=== PATIENT | female | born 1990 | race Caucasian/White ===

== ENCOUNTER → 2017-05-21 | Outpatient (CLI) | payer BC | LOC: MC.RAD 07:30 | DX: N63 Unspecified lump in breast (principal); Z80.3 Family history of malignant neoplasm of breast; Z78.9 Other specified health status ==

== ENCOUNTER → 2017-07-06 | Outpatient (CLI) | payer BC | LOC: MC.RAD 14:15 → COL.RAD 14:56 | DX: E04.1 Nontoxic single thyroid nodule (principal); N63 Unspecified lump in breast; Z78.9 Other specified health status ==

== ENCOUNTER 2019-01-18 10:01 | Outpatient (CLI) | payer BC ==
[~2019-01-18] VITALS: Ht 170.2 cm; Wt 118.2 kg
[2019-01-18] VITALS (8 sets, daily range): BP systolic 159–181; BP diastolic 79–93; PULSE 63–74; TEMP 97.8
[2019-01-18] MEDS ORDERED: PRENATAL VITAMI1 TA3 PO (10:15)
[2019-01-18] MEDS ORDERED: SYNTHROID0.088 MG/T PO (10:15)
[2019-01-18] MEDS ORDERED: OSCAL 500 TAB500 MG PO (10:16)
[2019-01-18] MEDS ORDERED: PROTONIX20 MG PO (10:16)
--- NOTE | 2019-01-18 10:20 | NUR ---
G1 at 37.4 weeks gestation to LDR2 with c/o a headache and increased blood pressures taken by the school nurse. Patient changed into gown and assisted to left lateral position. EFMs explained and applied. FHR 130 bpm and reactive. No CTX per toco or patient reports. Blood pressure 181/93. Assessment completed. 1+ pitting edema noted to bilateral feet. Patient c/o headache but denies visual disturbances and has not taken medication for her headache. Repeat blood pressure 162/85. Plan of care reviewed.
--- NOTE | 2019-01-18 11:00 | NUR ---
Instructions for 24 hour urine reviewed with patient who states understanding.
[2019-01-18 11:18] LABS: BASO % 0.4 % (0.0-2.0); EOS # 0.1 (0.0-0.7); EOS % 0.7 % (0-4.0); GRAN # 6.2 (1.4-6.5); GRAN % 69.2 % (42.2-75.2); HEMATOCRIT 35.7 % (37.0-47.0); HEMOGLOBIN 12.1 g/dl (12.5-16.0); LYMPH # 1.7 (1.2-3.4); LYMPH % 19.2 % (20.0-51.0); MEAN CELL VOLUME 90 fl (80.0-100.0); MEAN CORPUSCULAR HEMOGLOBIN 30 pg (27.0-31.0); MEAN CORPUSCULAR HGB CONC 34 g/dl (33.0-37.0); MONO # 0.9 (0.1-0.6); MONO % 9.6 % (1.7-9.3); PLATELET COUNT 189 K/mm3 (130-400); RED BLOOD COUNT 3.98 M/mm3 (4.10-5.30); REDCELL DISTRIBUTION WIDTH-CV 13.1 % (11.5-14.5)
[2019-01-18 11:24] LABS: ALBUMIN 3.3 gm/dL (3.5-5.0); BILIRUBIN,TOTAL 0.2 mg/dL (0.0-1.0); CALCIUM 9.3 mg/dL (8.4-10.2); CREATININE, serum 0.53 (0.52-1.25); POTASSIUM 4.4 mmol/L (3.4-5.0); TOTAL PROTEIN 6.5 gm/dL (6.4-8.2)
--- NOTE | 2019-01-18 12:00 | NUR ---
Discharge instructions reviewed, including orders for modified bedrest and to return to the [facility] tomorrow to turn in 24 hour and to have blood pressure check. Patient states understanding.
[2019-01-21] MEDS ORDERED: PERCOCET 325 MG1 TA2 PO (09:37)
[2019-01-21] MEDS ORDERED: MOTRIN 800800 MG/TAB PO (09:37)
[2019-01-21] MEDS ORDERED: PROCARDIA XL 3030 MG PO (09:37)
== END 2019-01-18 12:10 | disposition home or self-care (01) ==
LOC: LDRO 10:01
PROVIDERS: Obstetrics & Gynecology
DX: O13.3 Gestational [pregnancy-induced] hypertension without significant proteinuria, third trimester (principal); O99.89 Other specified diseases and conditions complicating pregnancy, childbirth and the puerperium; R51 Headache; M79.89 Other specified soft tissue disorders; Z3A.37 37 weeks gestation of pregnancy

== ENCOUNTER → 2019-01-27 | Outpatient (CLI) | payer BC ==
[~2019-01-27] MED LIST: MOTRIN 800800 MG/TAB PO; OSCAL 500 TAB500 MG PO; PERCOCET 325 MG1 TA2 PO; PRENATAL VITAMI1 TA3 PO; PROCARDIA XL 3030 MG PO; PROTONIX20 MG PO; SYNTHROID0.088 MG/T PO
--- NOTE | 2019-01-27 16:21 | NUR ---
Pt, Leigh Keller, presents for outpatient consult with 8 day old baby girl, Jeison Keller, for a evaluation as Jeison has not been able to nurse effectively when she was in the hospital. Jeison was born at 37 weeks gestation by c/section because pt has pre-eclampsia. Her weight was 6#5.6oz (2880 gms). Discharge weight was 5#10oz. She was re-admitted for further weight loss, and at discharge on 01/25/19 she weighed 2650 gms. Jeison was seen yesterday by Dr. Alcala and her weight was reported to be 2670 gms. Today Jeison weighs 2690 gms (5#14.9oz). Feedings have been by bottle and are about 40-55ml each feed. Pt is able to collect 50-75% of her intake by bottle at this stage; she pumps every 2-4 hours. Pt and LC each work with latching Jeison. She opens her mouth widely and is eager but does not hold the nipple in her mouth. Latching was also attempted with a nipple shield but she still was not able to hold the latch and create a good suck effort. LC does suck evaluation with gloved finger and notes Jeison does not extend her tongue across the gum well and if she does extend it, the tongue slips back inside the gum. She does suckle but the pressure is mild. Jeison is fed 55ml formula via bottle by this LC while pt expressed breastmilk, collecting about 35ml. POC: continue pumping and bottle feeding, allowing Jeison time to grow, ideally to weight, and develop more and then re-evaluate . Pt advised on ways to encourage tongue extension. F/U: [facility]19 and with LC as Jeison gains weight and strength; anticipating in the next 1-2 weeks. Pt verbalizes understanding, questions invited and answered.
== END ==
LOC: OLC 14:02
DX: Z39.1 Encounter for care and examination of lactating mother (principal); Z71.89 Other specified counseling

== ENCOUNTER 2022-01-29 07:42 | Inpatient (IN) | payer BC ==
[~2022-01-29] VITALS: Ht 165.1 cm; Wt 128.2 kg
[2022-01-30] VITALS (24 sets, daily range): BP systolic 92–184; BP diastolic 47–92; PULSE 62–88; TEMP 97.6–98.3
--- NOTE | 2022-01-30 10:00 | NUR ---
046498.3 G2L1 arrives on unit for scheduled repeat section. Ambulatory to 209. Oriented to room and plan of care. Reports normal movement. Denies any LOF, VB, or regular contractions. Changes into clean gown. 1015EFM explained and placed. Tracing well. Consent forms explained and signed. Assessment completed. VS obtained. 1040IV to left hand. Routine labs obtained. LR bolus infusing. 1103FHR reactive. EFM removed. Patient updated on plan of care. Verbalizes understanding. 1120Dr. Alford at nurses desk. Reviews strip. Per Dr. Mondragon orders pt ambulatory to LDR3 for continues monitoring. 1132EFM reapplied and tracing well. Care of pt assumed by Aziza Taylor RN.
[2022-01-30 10:47] LABS: BASO % 0.4 % (0.0-2.0); EOS # 0.1 K/mm3 (0.0-0.7); EOS % 0.8 % (0.0-4.0); GRAN # 6.2 K/mm3 (1.4-6.5); LYMPH # 2.3 K/mm3 (1.2-3.4); LYMPH % 23.8 % (20.0-51.0); MEAN CELL VOLUME 87 fl (80.0-100.0); MEAN CORPUSCULAR HEMOGLOBIN 29 pg (27-31); MEAN CORPUSCULAR HGB CONC 33 g/dl (33.0-37.0); MEAN PLATELET VOLUME 10.5 fl (7.4-10.4); MONO # 1.1 K/mm3 (0.1-0.6); MONO % 10.9 % (1.7-9.3); PLATELET COUNT 208 K/mm3 (130-400); REDCELL DISTRIBUTION WIDTH-CV 13.9 % (11.5-14.5)
[2022-01-30] MEDS ORDERED: SYNTHROID0.125 MG/T PO (10:57)
[2022-01-30] MEDS ORDERED: PRENATAL TABLET PO (10:58)
[2022-01-30 15:52] LABS: ALBUMIN 2.8 gm/dL (3.5-5.0); BILIRUBIN,TOTAL 0.4 mg/dL (0.2-1.2); CALCIUM 8.6 mg/dL (8.4-10.2); CREATININE, serum 0.59 mg/dL (0.57-1.11); TOTAL PROTEIN 6.1 gm/dL (6.2-8.1)
[2022-01-31 00:30] VITALS: BP 150/79; PULSE 73; TEMP 98.1
[2022-01-31 04:00] VITALS: BP 133/72; PULSE 66; TEMP 97.5
[2022-01-31 07:10] VITALS: BP 133/79; PULSE 57; TEMP 97.8
[2022-01-31] MEDS ORDERED: IBU800 M1 PO (08:49)
[2022-01-31] MEDS ORDERED: PERCOCET 325 MG1 TA2 PO (08:49)
--- NOTE | 2022-01-31 09:06 | NUR ---
Initial visit; Parents thanked Wind Turbine Technician for offering congratulations and God's blessings for the of their daughter. Wind Turbine Technician thanked family for choosing [place].
[2022-01-31 12:00] VITALS: BP 127/69; PULSE 78; TEMP 98.1
[2022-01-31 16:30] VITALS: BP 142/72; PULSE 74; TEMP 97.6
--- NOTE | 2022-01-31 17:10 | NUR ---
1645- THIS RN CALLED DR. SNELL TO GET ORDERS TO GET ORDERS CHANGED FROM [place] TO [place] BECAUSE PT HAS HIT LIMIT ON TYLENOL AND IS NEEDING AN OPIOID TO CONTROL PAIN. NO ANSWER. 1654- THIS RN TRIED TO REACH HER AGAIN. 1700- CALLED DR. KERR FIELD [employer]IC. NO ANSWER. 171- CIRILO CALLED BACK AT THIS TIME AND GAVE TELEPOHONE ORDERS FOR ROXICODONE PRN Q4 HOURS AND TYLENOL PRN Q6 HOURS.
[2022-01-31 20:30] VITALS: BP 132/87; PULSE 79; TEMP 98
[2022-02-01 07:10] VITALS: BP 139/82; PULSE 84; TEMP 97.9
== END 2022-02-01 14:25 | disposition home or self-care (01) | DRG 788 ==
LOC: LDR 01-30 07:42 → OB 01-30 09:52 → LDR 01-30 17:06 → OB 02-01 14:25
PROVIDERS: ADMIT Student in an Organized Health Care Education/Training Program
PROC: 10D00Z1 Extraction of Products of Conception, Low, Open Approach (ICD-10-PCS; principal; 2022-01-30)
DX: O34.211 Maternal care for low transverse scar from previous cesarean delivery (principal); O99.214 Obesity complicating childbirth; E66.01 Morbid (severe) obesity due to excess calories; O99.62 Diseases of the digestive system complicating childbirth; K58.1 Irritable bowel syndrome with constipation; K21.9 Gastro-esophageal reflux disease without esophagitis; O99.284 Endocrine, nutritional and metabolic diseases complicating childbirth; E06.3 Autoimmune thyroiditis; O32.1XX0 Maternal care for breech presentation, not applicable or unspecified; O75.89 Other specified complications of labor and delivery; N83.8 Other noninflammatory disorders of ovary, fallopian tube and broad ligament; Z37.0 Single live birth; Z3A.39 39 weeks gestation of pregnancy
CPT/HCPCS: J0690; J1100; J1885; J2370; J2405; J2590; J7120

== ENCOUNTER 2022-12-23 05:21 | Day surgery (SDC) | payer BC ==
[~2022-12-23] VITALS: Ht 167.6 cm; Wt 118.6 kg
[~2022-12-23 05:21] MED LIST changes: +IBU800 M1 PO; +PRENATAL TABLET PO; +SYNTHROID0.125 MG/T PO
[2022-12-23] MEDS ORDERED: FLONASE NASAL S16 GM NS (06:17)
[2022-12-23] MEDS ORDERED: VITAMIN C500 MG (06:18)
[2022-12-23 06:24] VITALS: BP 130/88; PULSE 79; TEMP 97.9
[2022-12-23] MEDS ORDERED: NORCO 325 MG-51 TAB PO (08:34)
[2022-12-23 09:25] VITALS: BP 136/77; PULSE 65; TEMP 97.5
[2022-12-23 09:40] VITALS: BP 133/82; PULSE 77
[2022-12-23 09:55] VITALS: BP 146/80; PULSE 68
--- NOTE | 2022-12-23 10:35 | NUR ---
0925-PT TO BAY 1 PER CART FROM PACU. REPORT RECEIVED. VS OBTAINED. CALL LIGHT WITHIN REACH. PT TOLERATING ICE CHIPS. PT DENIES ANY NEEDS AT THIS TIME. 0930-PT TOLERATING WATER, JUICE, ADND MUFFIN. DENIES ANY NEEDS. 1000-DISCHARGE EDUCATION COMPLETED WITH PT AND HER . VERBALIZED UNDERSTANDING OF HOME AND FOLLOW UP CARE. ALL QUESTIONS ANSWERED. DISCHARGE PAPERWORK GIVEN TO PT. 1010-IV DC'D AT THIS TIME. PT UP THE RESTROOM AND VOIDED WITHOUT DIFFICULTY. PT ABLE TO DRESS SELF WITHOUT ASSISTANCE. 1035-PT OFF UNIT PER WHEELCHAIR. PT DISCHARGED TO HOME WITH PER PERSONAL VEHICLE.
== END 2022-12-23 10:35 | disposition home or self-care (01) ==
LOC: SDCO 05:21
DX: K80.10 Calculus of gallbladder with chronic cholecystitis without obstruction (principal); G47.33 Obstructive sleep apnea (adult) (pediatric)
CPT/HCPCS: J0330; J0690; J1100; J1170; J1885; J2405; J2704; J3010; J7120

== ENCOUNTER → 2024-07-07 | Outpatient (CLI) | payer BC ==
[~2024-07-07] MED LIST changes: +FLONASE NASAL S16 GM NS; +NORCO 325 MG-51 TAB PO; +VITAMIN C500 MG
== END ==
LOC: MC.RAD 09:00
DX: Z12.31 Encounter for screening mammogram for malignant neoplasm of breast (principal); Z12.4 Encounter for screening for malignant neoplasm of cervix; E66.01 Morbid (severe) obesity due to excess calories